=== PATIENT | male | born 1970 | race Caucasian/White ===

== ENCOUNTER 2016-11-29 09:14 | Day surgery (SDC) | payer OTHER ==
[2016-11-29] VITALS (10 sets, daily range): BP systolic 115–137; BP diastolic 70–97; PULSE 68–83; RESP 9–16; O2SAT 90–99
[~2016-11-29] VITALS: Ht 182.9 cm; Wt 100.8 kg
[~2016-11-29 09:14] MED LIST: Clindamycin Inj 600 MG in IV Premix 1 EACH IV SCH; Lactated Ringer's 1,000 ML IV SCH; NAPR250T PO
[2016-11-29] MEDS ORDERED: HYDROcodone-APAP 5-325 mg Tablet PO PRN (12:10)
--- NOTE | 2016-11-29 12:10 | PCM.ORTHOP ---
Orthopedic Operative Report Date of Service: November 29, 2016 Pre Operative Diagnosis Left knee medial meniscus tear Post Operative Diagnosis Same Procedure Left knee arthroscopy, partial medial meniscectomy, chondroplasty, partial synovectomy Surgeon Surgeon: Renard Casanova MD Assistants: None Indication for Procedure Left knee meniscus tear Findings Per dictation Details of Procedure INDICATIONS: Edmund Guerrero is a 46-year-old male who has had a history of left knee pain. The patient has failed conservative management. X-rays show the tibiofemoral joints to be preserved with minimal DJD. MRI was obtained which reveals medial meniscus tear. The patient has had persistent symptoms and is now brought to the operating room for arthroscopy. The risks, benefits, and alternatives of surgery were discussed with the patient. The risks included but were not limited to infection, bleeding, damage to vessels and nerves, loss of motion, continued pain, re-tear of the meniscus, deep venous thrombosis, and complications due to anesthesia including nerve injury, myocardial infarction, stroke, , etc. The patient stated understanding of the nature of the surgical procedure and gave written and verbal consent to proceed. PROCEDURE: The patient was brought to the operating room and placed supine on the operating room table. After the administration of general anesthesia the patient was placed in the supine position. Examination of the knee revealed no evident instability with a trace effusion. All prominences were padded with appropriately and neurovascular structures protected. The left knee was confirmed to be the appropriate site following surgical time out. The left lower extremity was examined under anesthesia. Range of motion was 0-135 degrees. There was no varus or valgus or anterior or posterior instability. The left lower extremity was then prepped and draped in the usual fashion. Sterile prep and drape was then undertaken of the knee. The knee joint was injected with 20 ccs of 1% Lidocaine, along with 3 ccs of 1 % lidocaine in the medial and lateral portal sites respectively. A standard anterolateral parapatellar stab wound was created. The knee joint was entered with a blunt- tipped obturator, followed by the 30-degree video arthroscope. An anteromedial portal was established under arthroscopic control. A routine arthroscopic survey was performed. The patellofemoral joint showed grade 2/3 chondromalacia which was debrided down to stable tissue with a shaver. The medial joint space was then entered. The articular surfaces showed grade 2 chondromalacia. A degenerative posterior horn and posterior body medial meniscal tear was noted with a small flap. The shaver and the cutting instruments were inserted, and a debridement of the meniscus back to healthy tissue was then undertaken. The ACL and PCL were noted to be intact. The lateral joint space was then entered. The articular surfaces were intact with grade 1/2 chondromalacia. There was no degenerative tear to the lateral aspect of the lateral meniscus. Moderate synovitis was noted anteriorly in the medial and lateral compartment and debrided with a shaver. The knee was irrigated with an additional 2 liters of lactated Ringer's solution. Excess fluid was drained. The portals were closed with 3-0 nylon as well as xeroform. The knee was injected with 20 mL of 0.5% ropivacaine. A dry sterile dressing was applied, followed by an ALEJANDRA hose, soft roll, and JUNIOR bandage. The patient was awakened in the operating room and transported to the recovery room in satisfactory condition. The patient appeared to tolerate the procedure well. At the completion of surgery the patient had soft compartments , palpable pulses, and brisk capillary refill. There were no complications noted. Please keep dressing clean dry and intact. Do not remove dressing until follow- up in clinic. If the dressing become soaked, you may remove the outer gauze and placed Band-Aids on the wounds. You may weight-bear as tolerated and maintain motion of your knee by bending it daily. You will follow up in clinic in 10-14 days for suture removal, and placement of new Steri-Strips. You will follow-up with me in clinic, and we will start physical therapy if needed. You will follow-up with me at 6 weeks postop. Please keep the affected extremity elevated when possible. Please take aspirin as prescribed. You may use ice and/or heat as needed for comfort. (preferably ice during the first 48-72 hours) Please feel free to call with any further questions, comments , and/or concerns. Grafts, Implants: None Complications There were no periprocedural complications identified. Condition Stable Anesthetic Administered: GA Catheters: None Output, Estimated Blood Loss: 5 Blood Admin during surgery: No Surgical Cast or Splint: Other Surgical Specimen Removed: No Specimen sent to Pathology: No copies to: Renard Casanova MD, Christopher L MD November 29, 2016 12:10 Renard Casanova MD November 29, 2016 12:10
[2016-11-29] MEDS ORDERED: Lactated Ringer's 1,000 ML IV SCH (12:48)
[2016-11-29] MEDS ORDERED: Lactated Ringer's 500 ML IV PRN (12:48)
[2016-11-29] MEDS ORDERED: fentaNYL-PF 50 mCg/mL 2 mL Inj IVPUSH PRN (12:50)
[2016-11-29] MEDS ORDERED: Labetalol 5 mg/mL 4 mL Inj IV PRN (12:50)
[2016-11-29] MEDS ORDERED: MetoCLOpramide 5 mg/mL 2 mL Inj IVPUSH PRN (12:50)
[2016-11-29] MEDS ORDERED: Ondansetron 2 mg/mL 2 mL Inj IVPUSH PRN (12:50)
[2016-11-29] MEDS ORDERED: HYDROmorphone 1 mg/mL Inj IVPUSH PRN (12:50)
[2016-11-29] MEDS ORDERED: Phenylephrine 10,000 mCg/mL Inj IVPUSH PRN (12:50)
[2016-11-29] MEDS ORDERED: Atropine 0.4 mg/mL Inj IVPUSH PRN (12:50)
[2016-11-29] MEDS ORDERED: EPHEDrine Sulfate 50 mg/mL Inj IVPUSH PRN (12:50)
[2016-11-29] MEDS ORDERED: Ropivacaine-PF 0.5% 30 mL Inj INFILTRATE ONE (12:59)
--- NOTE | 2016-11-29 13:02 | PCM.HPANE ---
Patient Data Surgeon Admitting Provider: Attending Provider:Renard Casanova MD Primary Care Physician:Alfred Mittal DO Other Provider:Ellie Rizvi Anesthesia Reason for Visit Left Knee Medial Meniscal Tear Ht/WT & BMI Height (Feet): 6 Height (Inches): 0 Weight (Kilograms): 100.8 Body Mass Index 30.00 Allergies Coded Allergies: Penicillins (Verified Allergy, Unknown, UNKNOWN, 11/28/16) sulfamethoxazole (Verified Allergy, Unknown, UNKNOWN, 11/28/16) trimethoprim (Verified Allergy, Unknown, UNKNOWN, 11/28/16) Past Anesthesia History Anesthesia History: Denies:: Abnormal Airway, Anesthesia Reactions, Difficult Intubation, Fam Anesthesia Reaction, Fam Malignant Hypertherm, Malignant Hyperthermia Diabetes History Hx Diabetes?: No Type of Diabetes: Type I Medications Reported Medications Naproxen 250 Mg [id number] Mg PO BID PRN For Pain Ref 0 11/28/16 History History of ENT Problems?: No HEENT History: Denies:: Abnormal Airway Cataracts Difficult Intubation Dysphagia Glaucoma Hearing Problem Sinus Problem TMJ Denture Type: None Teeth Condition: Broken Teeth Hx of Heart Problems?: No Cardiovascular History: Denies:: AICD Abdominal Aortic Aneurism Atrial Fibrillation Cardiac Surgery Chest Pain Congestive Heart Failure Coronary Artery Disease Edema Heart Murmur Hypertension Irregular Heartbeat Pacemaker Peripheral Vascular Rheumatic Fever Thrombophlebitis Valvular Heart Disease Hx of Respiratory Problem?: Yes Respiratory History: Denies:: Asthma COPD Chest Surgery Cough Dyspnea Emphysema Hemoptysis Oxygen Administration Pneumonia Pulmonary Embolism Tuberculosis Use of C-PAP Machine Use of Inhalers / NEBS Hx Neurologic Problems?: Yes Neurological History: Positive for:: Seizures (REMOTE HX-CONTROLLED W/ SELF- PRESCRIBED MARIJUANA NO ACITIVITY RECENTLY) Denies:: Alzheimer's Disease CVA Dementia Dizziness Headaches Multiple Sclerosis Parkinson's Disease Peripheral Neuropathy TIA Hx of GI Problems?: Yes Gastrointestinal History: Denies:: Cirrhosis Diverticulitis Gall Bladder Disease Gastroesphageal Reflux Gastrointestinal Bleeding Heartburn Hepatitis Hiatal Hernia Liver Disease Rectal Bleeding Other GI Pertinent History: S/P HERNIA RPR Hx of Problems?: No Genitourinary History: Denies:: HX of Hemodialysis Kidney Stones Urinary Tract Infection HX of Peritoneal Dialysis: No Male Hx: Denies:: Prostate Problems Scrotal Mass Testicular Surgery Skin History: Denies:: History Skin Disorders? Pressure Ulcers Hx Musculoskeletal Problems?: Yes Musculoskeletal History: Positive for:: Musculoskeletal Trauma (LT KNEE MEDIAL MENISCAL TEAR=CURRENT PROBLEMS) Denies:: Back Injury (C/OF CHRONIC LOWER BACK PAIN) Degenerative Joint Fibromyalgia Joint Replacement Myasthenia Gravis Osteoarthritis Rheumatoid Arthritis Systemic Lupus Hx of Psycho/Social Problems?: No Psycho Social History: Denies:: Anxiety Bipolar Disorder Hx Depression Suicide Attempt Hx Surgeries?: Yes (hernia repair) Hx Any Other Health Problems?: Yes Other History: Denies:: Cancer Endocrine Disease Hospitalization Thyroid Disease History Blood Transfusions: Denies:: Accept Blood Products? Blood Transfuse Reaction Blood Transfusions Hx Diabetes: No Hx Alcohol Use: YesHx Substance Use: Yes (DAILY MARIJUANA)Have You Smoked inLast 12 mo: YesApprox How Many Cigarettes/day: 1/2 PPD Stop/Bang S-Snoring: Do You Snore Loudly: No T-Tired: feel tired, fatigued: No O-Obsered: Observed not breath: Yes P-Blood Pressure: treated: No B- Body Mass Index > 35 kg/m2: No A- Age over 50: No N- Neck Large Circumference: No G- Gender Male: Yes RAY Total Score: 2 Risk Assessment Category Category 1A: Patient has history of documented sleep apnea, and HAS NOT received any narcotic, sedative or anesthesia administration during this stay. Category 1B: Patient has history of documented sleep apnea, and HAS received any narcotic , sedative or anesthesia administration during this stay Category 2: Patient has SUSPECTED Obstructive Sleep Apnea, and HAS received any narcotic , sedative or anesthesia administration during this stay. Category 3: Patient has SUSPECTED Obstructive Sleep Apnea and HAS NOT received narcotic, sedative or anesthesia administration during this stay. Category 4: Outpatient in Procedural Areas with known sleep apnea or who screen positive for High Risk via the STOP/BANG questionnaire. Exam Exam Vital Signs Vital Signs Date Time Temp Pulse Resp B/P Pulse Ox O2 Delivery O2 Flow Rate FiO2 11/29/16 10:01 36.3 83 16 136/84 96 Room Air General Appearance: Alert HEENT/AIRWAY: MP 2, Neck Movement (FROM), Mouth Opening (3 FBMO) Lungs: Clear to Auscultation, Diminished Heart: Exam Unremarkable, Regular Rate/Rhythm, No Murmurs/Rubs/Gallops Plan Impression Patient chart reviewed, patient interviewed and anesthestic plan with risks, benefits, and alternatives discussed, and informed consent obtained. NPO per Anesth. Guidelines: Yes ASA Physical Status: ASA2 Mod Systemic Disease Anesthetic Plan: GA Bene/Risks/Altern/Consents: Yes HP Complete Prior to Induction: Yes Tyler Putnam MD November 29, 2016 10:51
--- NOTE | 2016-11-29 15:04 | PCM.ANEP1 ---
Post Anesthesia PACU Phase 1 Assessment Vital Signs Vital Signs Date Time Temp Pulse Resp B/P Pulse Ox O2 Delivery O2 Flow Rate FiO2 11/29/16 14:15 36.4 76 14 137/92 98 Room Air 11/29/16 14:05 36.5 72 12 124/80 98 Room Air 11/29/16 14:00 71 14 130/90 98 Nasal Cannula 3 11/29/16 13:45 72 9 130/88 98 Nasal Cannula 3 11/29/16 13:40 75 13 125/82 95 Nasal Cannula 3 11/29/16 13:35 75 13 117/72 90 Room Air 11/29/16 13:30 78 14 136/97 97 Room Air 11/29/16 13:26 36.1 78 16 136/97 99 Simple Mask 8 11/29/16 10:01 36.3 83 16 136/84 96 Room Air Anesthetic Administered: GA Level of Alertness: Awake, talking ACKERMAN's with Equal Strength: Yes Pain: No Nausea or Vomiting: No CV Function & Hydration Stable: No Airway Device: Oxygen Delivery: Room Air Lungs: Clear to Auscultation, Diminished Dermatome Level: Full Sensation PACU Phase 2 Assessment Complications: No Follow up Care: N/A Patient Instructions Provided: N/A Tyler Putnam MD November 29, 2016 15:04
== END 2016-11-29 23:59 | disposition home or self-care (01) ==
LOC: SAS 09:14
PROVIDERS: ATTEND Orthopaedic Surgery
DX: M23.322 Other meniscus derangements, posterior horn of medial meniscus, left knee (principal); M22.42 Chondromalacia patellae, left knee; M65.9 Synovitis and tenosynovitis, unspecified; M25.562 Pain in left knee; G40.909 Epilepsy, unspecified, not intractable, without status epilepticus; F17.210 Nicotine dependence, cigarettes, uncomplicated; F12.90 Cannabis use, unspecified, uncomplicated
CPT/HCPCS: 29881; J2795; J7120